=== PATIENT | female | born 1985 | race African-American/Black ===

== ENCOUNTER 2017-04-25 21:00 | Emergency (ER) | payer OTHER ==
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
[~2017-04-25 21:00] MED LIST: AMOXICILLIN500 M1 PO; AZATHIOPRINE50 M1 PO; BACTRIM DS TABL1 TA1 PO; BACTRIM DS TABL1 TAB PO; CIPRO PO; FLAGYL PO; FLEXERIL PO; FLEXERIL10 MG PO; FLONASE16 GM; IBUPROFEN800 MG PO; KEFLEX PO; KETOPROFEN PO; LORTAB 5/500 TA1 TA1 PO; LORTAB 5/500 TA1 TA2 PO; LORTAB 7.5-5001 TAB PO; MULTI VITAMIN1 EACH PO; NAPROSYN125 MG/5 M PO; NAPROSYN500 MG PO; ORUDIS75 M1 PO; PHENERGAN25 M1 PO; PREDNISONE PO; PREDNISONE10 MG/DOSE PO; VICODIN 5/500 T1 TAB PO; VICODIN PO; VITAMIN D1000 UNI1 PO; ZITHROMAX PO; ZYRTEC PO
[2017-07-26] MEDS ORDERED: HYDROCODON-ACE1 EAC9 PO (18:11)
== END 2017-04-25 22:49 | disposition home or self-care (01) ==
LOC: CED 21:00 → CFTX 21:00
DX: S63.501A Unspecified sprain of right wrist, initial encounter (principal); S60.221A Contusion of right hand, initial encounter; I10 Essential (primary) hypertension; D64.9 Anemia, unspecified; X58.XXXA Exposure to other specified factors, initial encounter; Y92.481 Parking lot as the place of occurrence of the external cause
CPT/HCPCS: 29280; 73110; 73130; 99283

== ENCOUNTER 2017-06-07 04:21 | Emergency (ER) | payer OTHER ==
[~2017-06-07] VITALS: Ht 157.5 cm; Wt 65.8 kg
[2017-06-07 05:55] LABS: BASOPHIL% 0.6 % (0-2.5); EOSINOPHIL# 0.2 X10e3 (0-0.7); EOSINOPHIL% 2.3 % (0.0-7.0); HEMATOCRIT 32.1 % (35.0-45.0); LYMPHOCYTE# 2.6 X10e3 (1.0-3.5); LYMPHOCYTE% 39.6 % (17.0-45.0); MEAN CELL VOLUME 72.7 FL (83-96); MEAN CORPUSCULAR HEMOGLOBIN 22.6 PG (28-34); MONOCYTE# 0.5 X10e3 (0-1.0); MONOCYTE% 7.7 % (3.0-12.0); NEUTROPHIL# 3.3 X10e3 (1.5-7.1); NEUTROPHIL% 49.8 % (40-75); PLATELET COUNT 379 X10e3 (140-420); RED BLOOD COUNT 4.41 X10e (3.90-5.30); RED CELL DISTRIBUTION WIDTH 19.2 % (11.0-15.5); WHITE BLOOD COUNT 6.6 X10e3 (4.0-10.5)
[2017-06-07 05:58] LABS: DIFF IND NO
[2017-06-07 06:36] LABS: ALBUMIN SERUM 3.7 g/dL (3.5-5.0); ALKALINE PHOSPHATASE 109 U/L (32-92); ALT (SGPT) 13 U/L (10-40); AMYLASE 20 U/L (0-46); AST (SGOT) 17 U/L (10-42); BILIRUBIN, DIRECT <0.1 mg/dL (0.0-0.2); BILIRUBIN,TOTAL <0.1 mg/dL (0.2-2.0); BLOOD UREA NITROGEN 9 mg/dL (9-23); CARBON DIOXIDE 27 mmol/L (22-31); CHLORIDE 106 mmol/L (100-111); CREATININE SERUM 0.6 mg/dL (0.6-1.4); GLOM FILT RATE Estimated 137.8 mL/min (>60); GLUCOSE FASTING 92 mg/dL (70-110); LIPASE 19 U/L (22-51); POTASSIUM 3.6 mmol/L (3.5-5.1); PROTEIN TOTAL SERUM 7.6 g/dL (6.0-8.3); SODIUM 140 mmol/L (135-145)
[2017-06-07 07:19] LABS: URINE SOURCE CLEAN CATCH
[2017-06-07 07:23] LABS: URINE APPEARANCE CLEAR; URINE BLOOD 4+ (NEG); URINE COLOR YELLOW; URINE GLUCOSE NORM (NORM); URINE KETONE NEG (NEG); URINE LEUKOCYTE ESTERASE 1+ (NEG); URINE NITRATE NEG (NEG); URINE PROTEIN 1+ (NEG); URINE UROBILINOGEN NORM (NORM)
[2017-06-07 07:24] LABS: URINE BILIRUBIN NEG (NEG)
[2017-06-07 07:28] LABS: CULTURE INDICATED? YES; URBCS1 AUWI INNUM /[HPF] (0-2); URINE BACTERIA AUWI 1+ (NEGATIVE); URINE SQUAMOUS EPITHELIAL CELL MOD /[HPF]
[2017-07-26] MEDS ORDERED: HYDROCODON-ACE1 EAC9 PO (18:11)
== END 2017-06-07 09:16 | disposition home or self-care (01) ==
LOC: CED 04:21
PROVIDERS: Emergency Medicine
DX: K50.90 Crohn's disease, unspecified, without complications (principal); I10 Essential (primary) hypertension; Z98.51 Tubal ligation status
CPT/HCPCS: 36415; 80048; 80076; 81003; 82150; 83690; 85025; 87086; 96374; 96375; 96376; 99284; J1170; J2270; J2405; J2930

== ENCOUNTER 2017-06-10 07:31 | Emergency (ER) | payer OTHER ==
[~2017-06-10] VITALS: Ht 167.6 cm; Wt 65.8 kg
--- NOTE | ~2017-06-10 | CR63 ---
[facility] A Service of [facility] & [facility] RADIOLOGY TEXT RESULTS PATIENT: MORGAN SANDERS LOCATION: [facility] : 83 UNIT #: [id number] AGE: [address]: Romelia Bales SEX: F ORDER DR: [id number] [facility] [address] [facility] [place], [place] [address] [id number] E MR#: [id number] #: [id number] NAME: MORGAN SANDERS : 1985 SEX: F STUDY DATE/TIME: 06/10/2017 10:09 UNIT: [facility] ROOM: STUDY DESCRIPTION: CR Chest 2 View Attending Physician: Generic Doctor Not In System Ordering Physician: Romelia Bales Pa-C Primary Care Physician: Will Beltran M.D. MEDICAL IMAGING REPORT This report is preliminary unless electronic signature is present EXAM PA and lateral chest radiograph INDICATION Shortness of breath and chest discomfort since 4 o'clock this morning. Patient does have a history of Crohn's disease and anemia. FINDINGS Heart size is within normal limits. Lungs appear clear. No acute infiltrates are identified. There is no pneumothorax or pleural effusion. No aggressive osseous abnormalities are seen. IMPRESSION No acute disease. Dictated by... Blanca Powers M.D. THIS IS AN ELECTRONICALLY VERIFIED REPORT Blanca Powers M.D. at 06/11/2017 5:00 PM AFF/pedro pablo TD: 06/10/2017 10:38 JOB #: [id number] MEDICAL IMAGING REPORT Page 1 of 1 COPY
--- NOTE | ~2017-06-10 | EKG ---
PATIENT: MORGAN SANDERS UNIT #: [id number] Ventricular Rate: 79 BPM Atrial Rate: 79 BPM P-R Interval: 136 ms QRS Duration: 80 ms Q-T Interval: 360 ms QTC Calculation(Bezet): 412 ms P Keller: 45 degrees Calculated R Keller: 10 degrees Calculated T Keller: 10 degrees Diagnosis Line: Sinus rhythm with Premature atrial complexes Diagnosis Line: Otherwise normal ECG Diagnosis Line: No previous ECGs available Diagnosis Line: Confirmed by GAEL STORM MD ([id number]) on 06/12/2017 Diagnosis Line: 10:50:20 PM INTERPRETING MD: EMETERIO COLINDRES
[2017-06-10 09:03] LABS: POC - CKMB <1.0 ng/mL (0.0-7.9); POC - TROPONIN <0.05 ng/mL (<=0.05)
[2017-06-10 09:07] LABS: BASOPHIL% 0.5 % (0-2.5); EOSINOPHIL% 0.4 % (0.0-7.0); HEMATOCRIT 34.2 % (35.0-45.0); HEMOGLOBIN 10.8 gm/dL (12.0-16.0); LYMPHOCYTE# 1.2 X10e3 (1.0-3.5); LYMPHOCYTE% 13.6 % (17.0-45.0); MEAN CELL VOLUME 72.2 FL (83-96); MEAN CORPUSCULAR HEMOGLOBIN 22.9 PG (28-34); MEAN CORPUSCULAR HGB CONC 31.7 g/dL (30-36); MEAN PLATELET VOLUME 8.1 FL (6.5-11.5); MONOCYTE# 0.5 X10e3 (0-1.0); MONOCYTE% 5.9 % (3.0-12.0); NEUTROPHIL# 7.1 X10e3 (1.5-7.1); NEUTROPHIL% 79.6 % (40-75); PLATELET COUNT 412 X10e3 (140-420); RED BLOOD COUNT 4.73 X10e (3.90-5.30); RED CELL DISTRIBUTION WIDTH 19.3 % (11.0-15.5); WHITE BLOOD COUNT 8.9 X10e3 (4.0-10.5)
[2017-06-10 09:09] LABS: DIFF IND NO
[2017-06-10 09:31] LABS: ALBUMIN SERUM 3.8 g/dL (3.5-5.0); ALKALINE PHOSPHATASE 103 U/L (32-92); ALT (SGPT) 16 U/L (10-40); AST (SGOT) 21 U/L (10-42); BILIRUBIN,TOTAL 0.2 mg/dL (0.2-2.0); BLOOD UREA NITROGEN 9 mg/dL (9-23); BUN/CREATININE RATIO 12.85; CALCIUM SERUM 9.1 mg/dL (8.4-10.2); CARBON DIOXIDE 27 mmol/L (22-31); CHLORIDE 106 mmol/L (100-111); CREATININE SERUM 0.7 mg/dL (0.6-1.4); GLUCOSE FASTING 89 mg/dL (70-110); POTASSIUM 3.9 mmol/L (3.5-5.1); PROTEIN TOTAL SERUM 7.8 g/dL (6.0-8.3); SODIUM 138 mmol/L (135-145)
[2017-06-10 09:32] LABS: BILIRUBIN, DIRECT <0.1 mg/dL (0.0-0.2); BILIRUBIN,INDIRECT 0.1 mg/dL (0.0-0.9)
[2017-06-10 09:45] LABS: URINE SOURCE CLEAN CATCH
[2017-06-10 09:53] LABS: URINE APPEARANCE CLOUDY; URINE BILIRUBIN NEG (NEG); URINE BLOOD 2+ (NEG); URINE COLOR YELLOW; URINE GLUCOSE NEG (NEG); URINE KETONE NEG (NEG); URINE LEUKOCYTE ESTERASE 1+ (NEG); URINE NITRATE NEG (NEG); URINE PH 6.5 (5-8); URINE PROTEIN 2+ (NEG); URINE SPECIFIC GRAVITY 1.019 (1.003-1.035)
[2017-06-10 09:54] LABS: CULTURE INDICATED? YES; URINE BACTERIA AUWI 2+ (NEGATIVE); URINE SQUAMOUS EPITHELIAL CELL MOD /[HPF]; UWBCS1 AUWI 25-50 (0-5)
[2017-06-10 10:16] LABS: POC - CKMB <1.0 ng/mL (0.0-7.9); POC - TROPONIN <0.05 ng/mL (<=0.05)
[2017-07-26] MEDS ORDERED: HYDROCODON-ACE1 EAC9 PO (18:11)
== END 2017-06-10 10:50 | disposition home or self-care (01) ==
LOC: CED 07:31
PROVIDERS: Physician Assistant Medical
DX: R06.02 Shortness of breath (principal); F41.9 Anxiety disorder, unspecified; I10 Essential (primary) hypertension; Z90.49 Acquired absence of other specified parts of digestive tract; Z98.51 Tubal ligation status; Z98.890 Other specified postprocedural states; Z79.899 Other long term (current) drug therapy
CPT/HCPCS: 36415; 71020; 80048; 80076; 81003; 82553; 84484; 84703; 85025; 85379; 87086; 93005; 96361; 96374; 96375; 99285; C9113; J1885; J2405